=== PATIENT | male | born 1985 ===

== ENCOUNTER 2020-07-23 06:25 | Emergency (ER) | payer OTHER, SELFPAY ==
[2020-07-23 06:30] VITALS: BP 143/98; PULSE 90; RESP 18; TEMP 36.7; O2SAT 99; BMI 33.4
--- NOTE | 2020-07-23 06:39 | ED_ITS ---
HPI - Headache General Chief Complaint: Headache Stated Complaint: Possible food poisoning, headache vomiting diarhea Time Seen by Provider: 07/23/20 06:27 Source: patient Mode of arrival: Ambulatory Limitations: no limitations History of Present Illness HPI Narrative: 35M non smoker with no significant medical problems presents with the chief complaint of a frontal headache along with nausea, vomiting, and diarrhea. He states he's had these symptoms previously when diagnosed with food poisoning. He went to bed feeling normal and awoke in the middle of the night with a frontal headache that improved after some aleve. His pain is 6/10, pressure like and he denies provocation, palliation, or radiation. He denies any neurologic symptoms such as blurred vision, trouble speech nor numbness, tingling or weakness. He denies any recent injury. He has had no fever, chills nor neck pain. He denies any blood in his vomit or diarrhea. He denies exposure to obviously bad food, recent antibiotics or other ill persons with similar symptoms. MD Complaint: headache Onset (ago): hour(s) Onset description: gradual Location: frontal Severity: moderate Quality: aching Relieving factors: nothing Exacerbating factors: none Context: occurred at rest Associated symptoms: nausea and vomiting Treatments prior to arrival: other Related Data Allergies Allergy/AdvReac Type Severity Reaction Status Date / Time No Known Allergies Allergy Verified 07/23/20 06:41 Review of Systems Constitutional Constitutional: Denies chills, Denies fatigue, Denies fever(s), Denies frequent falls, Reports headache(s), Denies lethargy and Denies weakness Eyes Eyes: Denies change in vision, Denies eye discharge, Denies irritation and Denies loss of vision ENT Ears, Nose, Mouth, and Throat: Denies change in voice, Denies dizziness, Reports headache(s), Denies neck pain, Denies sore throat and Denies throat swelling Cardiovascular Cardiovascular: Denies chest pain, Denies irregular heart rhythm, Denies lightheadedness, Denies palpitations, Denies dyspnea, Denies dyspnea on exertion and Denies orthopnea Respiratory Respiratory: Denies cough, Denies dyspnea, Denies dyspnea on exertion and Denies wheezing Gastrointestinal Gastrointestinal: Denies abdominal pain, Denies change in bowel habits, Reports diarrhea, Reports nausea and Reports vomiting Musculoskeletal Musculoskeletal: Denies neck pain and Denies numbness Integumentary/Breasts Skin/Breast: Denies pruritus, Denies erythema, Denies rash and Denies wounds Neurologic Neurologic: Denies behavioral changes, Denies confusion, Denies dizziness, D enies frequent falls, Reports headache(s), Denies loss of vision, Denies numbness and Denies weakness Psychiatric Psychiatric: Denies anxiety, Denies behavioral changes, Denies confusion, Denies depression, Denies homicidal ideation and Denies suicidal ideation Endocrine Endocrine: Denies fatigue, Denies flushing and Denies palpitations Hematologic/Lymphatic Hematologic/Lymphatic: Denies easy bruising Allergic/Immunologic Allergic/Immunologic: Denies urticaria, Denies throat swelling and Denies wheezing Patient History Social History Smoking Status: Never smoker Smoking Status: Never smoker alcohol intake frequency: 0-2 drinks per day Substance Use Type: does not use Exam Narrative Exam Narrative: GENERAL: [35] year old patient appears stated age. Well- nourished, well-developed patient, in mild distress. HEAD: Atraumatic. Normocephalic. EYES: Pupils equal round and reactive. Extraocular motions intact. No scleral icterus. No injection or drainage. ENT: Nose without bleeding, purulent drainage. Throat without erythema, tonsillar hypertrophy or exudate. Airway patent. NECK: Trachea midline. Non tender CARDIOVASCULAR: Regular rate and rhythm without murmurs, gallops, or rubs. RESPIRATORY: Clear to auscultation. Breath sounds equal bilaterally. No wheezes, rales, or rhonchi. GASTROINTESTINAL: Abdomen soft, non-tender, nondistended. EXTREMITIES: No edema or joint tenderness. BACK: Nontender without deformity or crepitance. No flank tenderness. NEURO: AOx3. SKIN: No rash or erythema of visible areas NIH Stroke Scale 1a. LOC: Patient is alert and keenly responsive (0) 1b. LOC Questions: Patient answers both LOC questions accurately (0) 1c. LOC Commands: Patient performs both tasks correctly (0) 2. Best Gaze: Normal (0) 3. Visual: No visual loss (0) 4. Facial palsy: Normal symmetrical movements (0) 5. Motor arm: No drift (0) 6. Motor leg: No drift (0) 7. Limb ataxia: Absent (0) 8. Sensory: Normal (0) 9. Best language: No aphasia; normal (0) 10. Dysarthria: Normal (0) 11. Extinction and inattention: No abnormality (0) NIHSS: 0 Initial Vital Signs Initial Vital Signs: Vital Signs Temperature 98.0 F 07/23/20 06:30 Pulse Rate 90 07/23/20 06:30 Respiratory Rate 18 07/23/20 06:30 Blood Pressure 143/98 H 07/23/20 06:30 Pulse Oximetry 99 07/23/20 06:30 Course Orders Ordered: Discontinued Medications Dexamethasone (Dexamethasone 10 Mg/Ml Vial) 10 mg IV NOW ONE Stop: 07/23/20 06:36 Last Admin: 07/23/20 06:44 Dose: 10 mg Documented by: PORTER Sodium Chloride (Normal Saline 0.9%) 1,000 mls @ 1,000 mls/hr IV BOLUS ONE Stop: 07/23/20 07:34 Last Infusion: 07/23/20 08:29 Dose: 0 mls/hr Documented by: Admin: 07/23/20 06:44 Dose: 1,000 mls/hr Documented by: PORTER Ketorolac Tromethamine (Ketorolac 60 Mg/2 Ml Vial) 15 mg IV NOW ONE Stop: 07/23/20 06:36 Last Admin: 07/23/20 06:44 Dose: 15 mg Documented by: PORTER Metoclopramide HCl (Metoclopramide 10 Mg/2 Ml Inj) 10 mg IV NOW ONE Stop: 07/23/20 06:36 Last Admin: 07/23/20 06:44 Dose: 10 mg Documented by: PORTER Vital Signs Vital signs: Vital Signs - 8 hr 07/23/20 06:30 Temperature 98.0 F Pulse Rate 90 Respiratory Rate 18 Blood Pressure 143/98 H Pulse Oximetry 99 MDM - Headache Lab Data Result diagrams: 07/23/20 06:44 07/23/20 06:44 Labs: Lab Results 07/23/20 07/23/20 07/23/20 Range/Units 06:44 06:44 06:45 WBC 5.2 (4.5-11.0) X10^3/uL RBC 5.55 (4.5-5.9) X10^6/uL Hgb 16.1 (13.5-17.5) g/dL Hct 47.8 (41-53) % MCV 86.1 (80-100) fL MCH 29.1 (26-34) PG MCHC 33.7 (30-36) % RDW 12.8 (11.6-14.8) % Plt Count 172 (150-400) X10^3/uL Neut % (Auto) 68.3 (50-75) % Lymph % (Auto) 20.9 L (25-40) % [place] % (Auto) 9.7 (3-14) % Eos % (Auto) 0.8 L (2-4) % Baso % (Auto) 0.3 (0-2) % Neut # (Auto) 3600 (5705-1607) /uL Lymph # (Auto) 1100 (3588-1958) /uL [place] # (Auto) 500 (0-900) /uL Eos # (Auto) 0 (0-450) /uL Baso # (Auto) 0 (0-100) /uL Sodium 137 (137-145) mmol/L Potassium 4.0 (3.4-5.1) mmol/L Chloride 102 (98-107) mmol/L Carbon Dioxide 29 (22-32) mmol/L BUN 15 (9-20) mg/dL Creatinine 1.12 (0.66-1.25) mg/dL Estimated GFR > 60.0 (>60) mL/min BUN/Creatinine Ratio 13.4 (6-22) Glucose 129 H (70-100) mg/dL Calcium 9.8 (8.4-10.2) mg/dL Total Bilirubin 0.6 (0.2-1.3) mg/dL AST 55 (17-59) IU/L ALT 79 H (<50) IU/L Alkaline Phosphatase 74 (38-126) U/L Total Protein 9.2 H (6.3-8.2) g/dL Albumin 4.7 (3.5-5.0) g/dL Globulin 4.5 H (1.7-4.1) g/dL Albumin/Globulin Ratio 1.0 (1.0-2.8) COVID-19 PCR Negative (Negative) Discharge Plan Departure Patient Disposition: Home Clinical Impression: Headache Instructions: DI for Headache Activity Restrictions/Additional Instructions: Follow-up with your physician in the next week if you have any other concerns or recurrent symptoms. You may take Tylenol and/or ibuprofen as needed for pain. Return to the ER for fevers, severe headaches, persistent vomiting, vision changes, new weakness, numbness or difficulty moving your extremities, black or bloody stools or other new or concerning symptoms
[2020-07-23] MEDS: KETOROLAC 60 MG/2 ML VIAL 15 MG IV (06:44)
[2020-07-23] MEDS: METOCLOPRAMIDE 10 MG/2 ML INJ IV (06:44)
[2020-07-23] MEDS: SODIUM CHLORIDE 0.9% 1,000 ML 1000 ML IV (06:44)
[2020-07-23] MEDS: DEXAMETHASONE 10 MG/ML VIAL IV (06:44)
[2020-07-23 06:51] LABS: Add Manual Diff / Slide Review NO; Basophils Absolute Auto 0 /uL (0-100); Basophils Percent Auto 0.3 % (0-2); Eosinophils Absolute Auto 0 /uL (0-450); Eosinophils Percent Auto 0.8 % (2-4); Hematocrit 47.8 % (41-53); Hemoglobin 16.1 g/dL (13.5-17.5); Lymphocytes Absolute Auto 1100 /uL (1100-4500); Lymphocytes Percent Auto 20.9 % (25-40); Mean Corpuscular HGB Conc 33.7 % (30-36); Mean Corpuscular Hemoglobin 29.1 PG (26-34); Mean Corpuscular Volume 86.1 fL (80-100); Monocytes Absolute Auto 500 /uL (0-900); Monocytes Percent Auto 9.7 % (3-14); Neutrophils Absolute Auto 3600 /uL (1500-7000); Neutrophils Percent Auto 68.3 % (50-75); Platelet Count 172 X10^3/uL (150-400); Red Blood Cell Count 5.55 X10^6/uL (4.5-5.9); Red Cell Distribution Width 12.8 % (11.6-14.8); White Blood Cell Count 5.2 X10^3/uL (4.5-11.0)
[2020-07-23 07:01] LABS: Alanine Aminotransferase 79 IU/L (<50); Albumin 4.7 g/dL (3.5-5.0); Alkaline Phosphatase 74 U/L (38-126); Aspartate Aminotransferase 55 IU/L (17-59); BUN Creatinine Ratio 13.4 (6-22); Bilirubin Total 0.6 mg/dL (0.2-1.3); Blood Urea Nitrogen 15 mg/dL (9-20); Calcium 9.8 mg/dL (8.4-10.2); Carbon Dioxide 29 mmol/L (22-32); Chloride 102 mmol/L (98-107); Estimated Glomerular Filt Rate > 60.0 mL/min (>60); Globulin 4.5 g/dL (1.7-4.1); Glucose 129 mg/dL (70-100); HEMOLYSIS 19 (0-50); Sodium 137 mmol/L (137-145); Total Protein 9.2 g/dL (6.3-8.2)
[2020-07-23 07:03] LABS: COVID19 -Nasal RAPID Negative (Negative)
--- NOTE | 2020-07-23 08:31 | ED.HA ---
HPI - Headache General Chief Complaint: Headache Stated Complaint: Possible food poisoning, headache vomiting diarhea Time Seen by Provider: 07/23/20 06:27 Mode of arrival: Ambulatory Limitations: no limitations History of Present Illness Location: frontal Severity: moderate Quality: aching Relieving factors: nothing Exacerbating factors: none Associated symptoms: nausea and vomiting Related Data Allergies Allergy/AdvReac Type Severity Reaction Status Date / Time No Known Allergies Allergy Verified 07/23/20 06:41 Review of Systems Constitutional Constitutional: Denies frequent falls, Reports headache(s) and Denies weakness Eyes Eyes: Denies loss of vision ENT Ears, Nose, Mouth, and Throat: Denies dizziness and Reports headache(s) Musculoskeletal Musculoskeletal: Denies numbness Neurologic Neurologic: Denies behavioral changes, Denies confusion, Denies dizziness, Denies frequent falls, Reports headache(s), Denies loss of vision, Denies numbness and Denies weakness Psychiatric Psychiatric: Denies behavioral changes and Denies confusion Patient History Social History Smoking Status: Never smoker Smoking Status: Never smoker alcohol intake frequency: 0-2 drinks per day Substance Use Type: does not use Exam Initial Vital Signs Initial Vital Signs: Vital Signs Temperature 98.0 F 07/23/20 06:30 Pulse Rate 90 07/23/20 06:30 Respiratory Rate 18 07/23/20 06:30 Blood Pressure 143/98 H 07/23/20 06:30 Pulse Oximetry 99 07/23/20 06:30 Course Orders Ordered: ED Orders 07/23/20 06:44 Complete Blood Count AUTO DIFF Stat Comprehensive Metabolic Panel Stat 07/23/20 06:45 COVID19 Stat Discontinued Medications Dexamethasone (Dexamethasone 10 Mg/Ml Vial) 10 mg IV NOW ONE Stop: 07/23/20 06:36 Last Admin: 07/23/20 06:44 Dose: 10 mg Documented by: KGALLAG Sodium Chloride (Normal Saline 0.9%) 1,000 mls @ 1,000 mls/hr IV BOLUS ONE Stop: 07/23/20 07:34 Last Infusion: 07/23/20 08:29 Dose: 0 mls/hr Documented by: Admin: 07/23/20 06:44 Dose: 1,000 mls/hr Documented by: KGALLAG Ketorolac Tromethamine (Ketorolac 60 Mg/2 Ml Vial) 15 mg IV NOW ONE Stop: 07/23/20 06:36 Last Admin: 07/23/20 06:44 Dose: 15 mg Documented by: PORTER Metoclopramide HCl (Metoclopramide 10 Mg/2 Ml Inj) 10 mg IV NOW ONE Stop: 07/23/20 06:36 Last Admin: 07/23/20 06:44 Dose: 10 mg Documented by: PORTER Reevaluation(s) Reevaluation #1: Patient signed out to myself by Dr. Bansal, he is feeling much better, states his headache has resolved. He did develop a headache followed by nausea and vomiting and diarrhea. He states that his GI symptoms had totally resolved but headache continued. At this time headache is significantly better and gone. Patient has not had any fevers. We reviewed his lab work, as COVID negative. We discussed he had suspected food poisoning but we all discussed possibly migraines. Patient does not need a work note today and discussed the rest and take it easy today and return precautions. Time: 08:31 Vital Signs Vital signs: Vital Signs - 8 hr 07/23/20 06:30 Temperature 98.0 F Pulse Rate 90 Respiratory Rate 18 Blood Pressure 143/98 H Pulse Oximetry 99 MDM - Headache Lab Data Result diagrams: 07/23/20 06:44 07/23/20 06:44 Labs: Lab Results 07/23/20 07/23/20 07/23/20 Range/Units 06:44 06:44 06:45 WBC 5.2 (4.5-11.0) X10^3/uL RBC 5.55 (4.5-5.9) X10^6/uL Hgb 16.1 (13.5-17.5) g/dL Hct 47.8 (41-53) % MCV 86.1 (80-100) fL MCH 29.1 (26-34) PG MCHC 33.7 (30-36) % RDW 12.8 (11.6-14.8) % Plt Count 172 (150-400) X10^3/uL Neut % (Auto) 68.3 (50-75) % Lymph % (Auto) 20.9 L (25-40) % [place] % (Auto) 9.7 (3-14) % Eos % (Auto) 0.8 L (2-4) % Baso % (Auto) 0.3 (0-2) % Neut # (Auto) 3600 (3512-1916) /uL Lymph # (Auto) 1100 (8228-5930) /uL [place] # (Auto) 500 (0-900) /uL Eos # (Auto) 0 (0-450) /uL Baso # (Auto) 0 (0-100) /uL Sodium 137 (137-145) mmol/L Potassium 4.0 (3.4-5.1) mmol/L Chloride 102 (98-107) mmol/L Carbon Dioxide 29 (22-32) mmol/L BUN 15 (9-20) mg/dL Creatinine 1.12 (0.66-1.25) mg/dL Estimated GFR > 60.0 (>60) mL/min BUN/Creatinine Ratio 13.4 (6-22) Glucose 129 H (70-100) mg/dL Calcium 9.8 (8.4-10.2) mg/dL Total Bilirubin 0.6 (0.2-1.3) mg/dL AST 55 (17-59) IU/L ALT 79 H (<50) IU/L Alkaline Phosphatase 74 (38-126) U/L Total Protein 9.2 H (6.3-8.2) g/dL Albumin 4.7 (3.5-5.0) g/dL Globulin 4.5 H (1.7-4.1) g/dL Albumin/Globulin Ratio 1.0 (1.0-2.8) COVID-19 PCR Negative (Negative) Discharge Plan Departure Patient Disposition: Home Clinical Impression: Headache Instructions: DI for Headache Activity Restrictions/Additional Instructions: Follow-up with your physician in the next week if you have any other concerns or recurrent symptoms. You may take Tylenol and/or ibuprofen as needed for pain. Return to the ER for fevers, severe headaches, persistent vomiting, vision changes, new weakness, numbness or difficulty moving your extremities, black or bloody stools or other new or concerning symptoms
[2020-07-23 08:34] VITALS: PULSE 79; O2SAT 95
[2020-07-23 08:35] VITALS: BP 115/71; PULSE 73; O2SAT 96
== END 2020-07-23 08:39 | disposition home or self-care (01) ==
PROVIDERS: Emergency Medicine; Emergency Provider Emergency Medicine
DX: R51.9 Headache, unspecified (principal); R11.2 Nausea with vomiting, unspecified
CPT/HCPCS: 36415; 80053; 85025; 87635; 96361; 96374; 96375; 99283; 99284; J1100; J1885; J2765

== ENCOUNTER → 2022-11-04 15:26 | Outpatient (CLI) | payer OTHER, SELFPAY ==
--- NOTE | 2022-11-04 | DI.MRI.S_ITS ---
PROCEDURE: MR CERVICAL SPINE WO CON INDICATIONS: Cervicalgia TECHNIQUE: Noncontrast sagittal T1 spin echo and T2 fast spin echo, sagittal STIR, foraminal oblique sagittal T2 fast spin echo, and axial gradient echo or T2 fast spin echo through the cervical spine. COMPARISON: None. FINDINGS: Image quality: Excellent. Alignment and Curvature: There is loss of normal cervical lordosis. Bone Marrow: Marrow demonstrates normal overall signal. Minimal reactive signal throughout the endplates of the cervical spine. Spinal Cord: Visualized spinal cord has normal size and signal. No cerebellar tonsillar herniation. Paraspinous Soft Tissues: No paravertebral masses. Prevertebral soft tissues are normal in thickness. C2-C3: Congenital canal stenosis. Mild disc desiccation and diffuse disc bulge. Moderate canal stenosis. No foraminal stenosis. C3-C4: Congenital canal stenosis. Mild disc desiccation and diffuse disc bulge with superimposed broad-based central protrusion. Mild facet and uncovertebral hypertrophy. Severe canal stenosis. Mild cord flattening. Moderate bilateral foraminal stenosis. C4-C5: Congenital canal stenosis. Mild disc desiccation and diffuse disc bulge. Mild facet and uncovertebral hypertrophy. Moderate canal stenosis. Mild bilateral foraminal stenosis. C5-C6: Congenital canal stenosis. Mild disc desiccation and diffuse disc bulge with small superimposed left posterolateral protrusion. Mild facet and uncovertebral hypertrophy bilaterally. Moderate to severe canal stenosis. Mild cord flattening. Moderate bilateral foraminal stenosis. C6-C7: Congenital canal stenosis. Mild disc height loss and desiccation. Mild diffuse disc bulge with superimposed left posterolateral protrusion. Mild facet and uncovertebral hypertrophy bilaterally. Severe canal stenosis. Moderate cord flattening. Severe left greater than right foraminal stenosis with left greater than right C7 nerve root compression. C7-T1: Congenital canal stenosis. Overall mild canal stenosis. No foraminal stenosis. IMPRESSION: 1. Diffuse congenital canal stenosis with superimposed disc and facet disease, as well as uncovertebral hypertrophy. 2. Multilevel canal stenoses, worst at C3-C4, C5-C6, and C6-C7, where there is associated cord flattening. 3. Multilevel foraminal stenoses, worst at C6-C7 where there is associated intraforaminal nerve root compression. Recommend correlation with clinical symptoms to ascertain relevance of these findings. Dictated by: Claudia Tuttle M.D. on 11/04/2022 at 16:28 Transcribed by: GERALD on 11/04/2022 at 16:30 Approved by: Claudia Tuttle M.D. on 11/10/2022 at 15:11
== END ==
PROVIDERS: Visit Provider Orthopaedic Surgery
DX: M50.31 Other cervical disc degeneration, high cervical region (principal); M48.02 Spinal stenosis, cervical region; M50.21 Other cervical disc displacement, high cervical region
CPT/HCPCS: 72141